=== PATIENT | male | born 1970 | race Caucasian/White ===

== ENCOUNTER 2021-06-09 11:50 | Outpatient (CLI) | payer OTHER, SELFPAY ==
--- NOTE | 2021-06-09 08:40 | FLU_PTH ---
PATIENT: RAULITO BENJAMIN LOC: [facility] U#:[id number] AGE/SX: 50/M ROOM: RE06/09/[address]: Dr. Jesús Esteves MD : 1970 BED: DIS: 06/09/2021 SPEC #: [id number] RECD: 06/09/21 11:20 STATUS: SHELLY FRANCESCA #: [id number] LUI: 06/09/21 08:[address]: Jesús Esteves DEPT: CYTOLOGY RECD BY: Katelyn Cordero ENTERED: 06/09/21 11:57 SP TYPE: Fluid OTHR DR: Dr. Anny Ibarra, DO Tissues: A - Thyroid gland, NOS B - Thyroid gland, NOS C - Thyroid gland, NOS Procedures: Special Stain Group II Surgery Specimen Level IV Cytospin Fluid Cytology Other HEADER OPERATION: Left thyroid fine needle aspiration PRE-OP DIAGNOSIS: Left thyroid nodules TISSUE SUBMITTED: A ? Left thyroid nodule fluid for cytology, B ? Left thyroid nodule x4 slides, C ? Left thyroid nodule cystic fluid aspirate DIAGNOSIS CYTOLOGY A. Left thyroid nodule fluid for cytology, FNA (cytospin and cell block): Rare benign follicular cells are noted. B. Left thyroid nodule, FNA (smears): Consistent with benign follicular nodule. Adequate for evaluation. C. Left thyroid nodule cystic fluid, FNA (cytospin and cell block): Rare macrophages are noted. See comment. SJ:julian 06/10/2021 COMMENT C. Follicular cells are not identified. Correlation with clinical, radiologic findings and appropriate follow up are necessary. CYTOLOGY STUDY Slides are reviewed. CYTOLOGY GROSS A - Received is 40 ml of red cloudy fluid labeled with the patient's name and and designated per the requisition as left thyroid nodule. Submitted for cytology preparation including cell block. B - Received are four smears labeled with the patient's name and designated per the requisition as left thyroid nodule. Submitted for staining. C - Received is 4 ml of red cloudy fluid labeled with the patient's name and and designated per the requisition as left thyroid nodule. Submitted for cytology preparation including cell block. / julian 06/09/2021 TC:5 CPT: 23744 x2, 59498 x2, 44838
== END 2021-06-09 23:59 | disposition home or self-care (01) ==
LOC: LABSPEC 11:53
PROVIDERS: PCP Internal Medicine; Visit Provider Surgery
DX: E04.2 Nontoxic multinodular goiter (principal)
CPT/HCPCS: 88108; 88161; 88305; 88313

== ENCOUNTER 2021-06-25 07:26 | Day surgery (SDC) | payer OTHER, SELFPAY ==
[2021-06-25 07:45] VITALS: BP 126/86; PULSE 63; RESP 16; TEMP 36.6; O2SAT 96; BMI 34.4
[2021-06-25] MEDS: Lactated Ringers 1,000 ML 15 ML IV (08:02)
--- NOTE | 2021-06-25 09:02 | HP.PCM_ITS ---
History and Physical Date of Admission: 06/25/21 Date of Service: 06/09/21 MR#:[id number]:[id number]: RAULITO BENJAMINRep #:[id number]:[id number] Provider:Leelee Viramontes/Sex: 50/M [facility] Int[facility] Vital Signs 06/09/21 08:42 Height 5 ft 11 in Weight: 252 lb 8 oz BMI 35.2 BP 139/82 H Blood Pressure Location Rt brachial Position Sitting Respiration 18 Pulse 70 Pulse Source Monitor Temp 97.5 F L Temp Source Temporal Pulse Oximetry (%) 96 Oxygen Delivery Method room air Intake Visit Reasons: LEFT THYROID NODULE Chief Complaint: Left Thyroid Nodule 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: No Is patient in pain?: No Allergies No Known Allergies Allergy (Verified 06/09/21 08:49) Medications amiodarone 200 mg tablet 200 mg PO DAILY 06/09/21 [History Confirmed 06/09/21] apixaban 5 mg tablet 5 mg PO BID 06/09/21 [History Confirmed 06/09/21] atorvastatin 80 mg tablet 80 mg PO DAILY 06/09/21 [History Confirmed 06/09/21] carvedilol 12.5 mg tablet 12.5 mg PO BID 06/09/21 [History Confirmed 06/09/21] hydralazine 10 mg tablet 10 mg PO DAILY tab 06/09/21 [History Confirmed 06/09/21] isosorbide dinitrate 10 mg tablet 10 mg PO DAILY tab 06/09/21 [History Confirmed 06/09/21] magnesium oxide 400 mg (241.3 mg magnesium) tablet 400 mg PO DAILY 06/09/21 [History Confirmed 06/09/21] omeprazole 20 mg capsule,delayed release 20 mg PO DAILY 06/09/21 [History Confirmed 06/09/21] potassium chloride 20 mEq oral packet 20 meq PO DAILY 06/09/21 [History Confirmed 06/09/21] torsemide 20 mg tablet 20 mg PO BID tab 06/09/21 [History Confirmed 06/09/21] [facility] Medical History (Updated 06/09/21 @ 11:[address] Jesús Esteves MD) Anxiety Atrial fibrillation Constipation Heart disease History of blood clots History of DE (myocardial infarction) Pacemaker Surgical History (Updated 06/09/21 @ 08:40 by Jennifer Tuesday) History of heart artery stent Family History (Updated 06/09/21 @ 08:41 by Jennifer Tuesday) Mother Hypertension Thyroid disorder Father Hypertension Brother Seizures Social History (Updated 06/09/21 @ 08:42 by Jennifer Tuesday) Smoking Status: Current some day smoker tobacco type: cigarettes how long ago did patient quit smoking: pt currently trying to quit, smokes occasionally, not every day substance use type: marijuana HPI HPI HPI: RAULITO BENJAMIN, is a 50 M with significant past medical history, including a number of cardiopulmonary diagnoses, who presents to the office today for newly diagnosed left thyroid nodule. They are referred for surgical consultation from Dr. Robison of [facility] in [facility]. This was discovered incidentally on a CT of the chest and abdomen performed 04/16/2021 for work-up of shortness of breath and abdominal pain. They do experience occasional difficulty with swallowing. He believes this has been present for the last 6 months to over a year. This is mostly in response to drinking liquids. They do not complain of a new cough. They do not appreciate new voice changes. They do have a history of snoring/sleep apnea and have a difficulty remaining compliant with CPAP because he does not have a full facemask. Additionally, their weight has been generally increasing and they do not have a clear explanation for this as it does not seem to be strictly related to the lower extremity swelling that he previously experienced. There is no history of recent fatigue. They do have a history of cold intolerance, but when asked for clarification he describes that he has more difficulty breathing when the temperatures are colder. Other symptoms include: Some loss of visual acuity?and finds that his ability to see at distances is retained but can no longer see up close. He also complains of recent hair loss, describing handfuls coming out over the past 3 months and needing to clean his brush once a week. Lastly he comments that he does have significant problem with constipation. He states that he is taking stool softeners up to 3 times a day but is cody to get out of marble. He denies any blood with this. There is significant straining required. Given that he has very poor voiding with individual bowel movements, he estimates that he stools approximately 3-4 times daily. He states that he was supposed to go for a colonoscopy during a past hospitalization, but then could not complete the bowel prep due to the significant volume prescribed. They do have a family history of thyroid disorders in his mother. He states that his mother had thyroid issues but no thyroid cancer as far as he is aware. There is no history of prior radiation exposure. Previous work-up as included thyroid ultrasound on 04/22/2021 which showed a right thyroid lobe that measured 5.4 x 2.0 x 1.2 cm. There is a heterogeneous echotexture but no nodules. On the left the thyroid measured 6.8 x 4.0 x 4.2 cm. There was, again, heterogeneous echotexture and a 5.1 x 3.4 x 3.7 cm solid/cystic nodule. An FNA has not been performed. Other tests include: TSH 1.475 (12/10/2020) Elaborating on the patient's personal/familial bowel history; patient does have a history of diverticulitis as well that was first diagnosed in his 20s. He is unaware of any diagnoses of colon cancer in the family, but relates that his brother was just diagnosed with Crohn's a month ago. Patient is currently on Eliquis for history of rate controlled atrial fibrillation. Cardioversion was unsuccessful and an ICD was subsequently placed. He also has a history of an DE 1 and half years ago. When asked about his pulmonary embolus, he states that he was transitioning between Coumadin and Eliquis and developed a clot that never reached the lungs but was on his way. He states that he was never able to achieve a therapeutic Coumadin level and this is what prompted the switch to Eliquis. He has held the Eliquis for just over 48 hours in anticipation of procedure today. He continues to take a baby aspirin of 81 mg. ROS General General: Yes weight change; No appetite, fatigue, colon cancer, breast cancer or weakness HEENT HEENT: No difficulty swallowing, eye injury, eye surgery, swollen glands or hoarseness Endo Endocrine: No thyroid disease, diabetes mellitus, thyroid cancer, Hair loss, heat intolerance or cold intolerance Skin Skin: No rash or changing moles Musc Musculoskeletal: No back problems, arthritis, rheumatoid arthritis, gout or joint pain Cardio Cardiovascular: Yes pacemaker, heart disease, atrial fibrillation, heart attack and heart stent; No murmur, high blood pressure, palpitations, shortness of breat with exertion or chest pain Psych Psychiatric: Yes anxiety; No depression or hearing voices Resp Respiratory: Yes shortness of breath, Yes sleep apnea, No cough, No COPD, No asthma, No emphysema and No wheezing Gastro Gastrointestinal: No abdominal pain, No nausea or vomiting, No diarrhea, Yes constipation, No blood in stool, No acid reflux, No hemorrhoids, No ulcers, No gallbladder problem and No black,tarry stools Calvin Hematologic: Yes blood thinners, No blood disorders, No bleeding, No anemia and Yes blood clots Additional Details: Hx DVT and possibly PE Neuro Neurologic: No system reviewed and no additional complaints, except as documented, No as per HPI, No abnormal gait, No abnormal hearing, No abnormal movements, No abnormal speech, No behavioral changes, No burning sensations, No confusion, No convulsions, No disequilibrium, No dizziness, No localized weakness, No frequent falls, No headache(s), No lack of coordination, No loss of vision, No memory loss, No numbness, No other visual disturbances, No radicular pain, No restless legs, No sensory deficit, No syncope, No tingling, No tremor(s), No weakness and No other Exam Const General: cooperative, no acute distress and disheveled Orientation: alert, awake and oriented x3 Neck Neck: no lymphadenopathy Thyroid: asymmetrical (Enlarged left thyroid lobe) and tender (Mildly tender with palpation) Resp Effort & Inspection: normal respiratory effort Auscultation: clear to auscultation bilaterally, no rales, no rhonchi and no wheezes Cardio Rhythm: abnormal rhythm irregularly irregular Office Procedures Fine Needle Aspiration Provider Documentation Details: Indication: Left thyroid nodule After obtaining patient consent and conducting a timeout amongst those present, the procedure was commenced by locating the suspicious nodule in the mid pole of the left thyroid lobe using ultrasound. Superficially, the skin was cleaned with an alcohol swab and a wheal of local anesthetic was created after instilling 9 ml 1% lidocaine. Then, under ultrasound guidance, multiple passes were made into the thyroid nodule using a 25-gauge needle. Once an adequate specimen was detected within the hub of the needle and bottom of the syringe, this was handed off the field. A second pass was made in a similar manner using a 22-gauge needle. This specimen, also, was passed off the field for cytopathologic evaluation. Given the very large cystic component of this nodule, I elected to perform a third pass for cystic fluid aspiration with a 22- gauge needle. This resulted in a total volume aspiration of 8 mL of clear, orange fluid. External pressure was applied to the neck to assist with hemostasis. A quick examination was made with ultrasound to exclude any evidence of hematoma formation. Then the surface of the neck was cleaned, dried, and a bandage was applied. Patient was gradually returned to the sitting position and after short period of monitoring was dismissed. Wound care instructions and expectations regarding pathologic processing were discussed prior to dismissal. Complications: None Estimated blood loss: 2 ml Alert Machine Sign Writer Alert Billing: Yes FNA 21743 Thyroid Procedure Time Out Time Out Informed consent given: Yes Consent signed: Yes Time out checklist: patient, procedure, site marked/identified, positioning of patient, supplies available, allergies confirmed and team agrees on procedure Time out staff in room: Yes Time out verified: Yes Time out date: 06/09/21 Time out time: 08:40 Assessment and Plan Assessment and Plan (1) Thyroid nodule greater than or equal to 1.5 cm in diameter incidentally noted on imaging study: Status: Acute Comment: This is a 50-year-old male with a incidentally?noted left thyroid nodule on CT exam from April 2021 for work-up of shortness of breath abdominal pain. Patient has a number of complaints, but it is unlikely these are due to an endocrine deficiency as patient had a normal TSH level in November 2020. From a mass-effect standpoint, patient experiences only occasional difficulty swallowing and his shortness of breath/pulmonary issues are generally ascribed to his significant cardiopulmonary history. Still, by imaging criteria this nodule is a TI-RADS 5 secondary to a mixed composition, hypoechoic echogenicity, in irregular margin, and the presence of peripheral calcifications. Therefore a biopsy and aspiration of the cystic contents was undertaken under ultrasound guidance during today's consultation. Further treatment plan will be contingent on the results of the patient's cytopathology. Patient is advised on post-? procedure care. Plan - Dr. Jesús Esteves MD: We will follow-up with patient once the results of cytopathology are known (2) Constipation: Status: Acute Comment: This is a 50-year-old male with some mild anemia and significant complaints of constipation who is never undergone diagnostic colonoscopy. He states that he has difficulty having bowel movements despite efforts to take supplemental fiber and use [id number] stool softeners. Also, significantly, patient has a prior diagnosis of diverticulitis and was recently made aware that his brother was diagnosed with Crohn's disease. Given all of the above, a diagnostic colonoscopy is strongly recommended. Patient accepts this recommendation and we will plan to proceed for an exam at first mutual availability. Plan - Dr. Jesús Esteves MD: ?Plan will be to complete colonoscopy on first mutually agreeable date under local MAC. Pre-procedure prep discussed and paper instructions provided. 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 We also covered that he will require temporary stoppage of his Eliquis prior to this procedure as well. I have re-examined the patient. There are no clinical changes since date of exam. Patient states that he completed his bowel prep successfully. He confirms that his output is now clear plan to proceed with diagnostic colonoscopy under local MAC.
[2021-06-25 09:53] VITALS: PULSE 89; RESP 16; TEMP 36.2; O2SAT 99
[2021-06-25 09:55] VITALS: BP 107/81; PULSE 89; RESP 16; O2SAT 98
--- NOTE | 2021-06-25 09:57 | OP.COLON_ITS ---
Patient Name: Kraig Anthony Procedure Date: 06/25/2021 9:08 AM Date of : 1970 Age: 50 Procedure: Colonoscopy Indications: Family history of Crohn's disease in a first-degree relative, Diverticulitis, Constipation Providers: Jeúss Esteves MD Referring MD: Jesús Esteves MD Medicines: See the Anesthesia note for documentation of the administered medications Patient Profile: Refer to note in patient chart for documentation of history and physical. Last Colonoscopy: none. The patient's first colonoscopy is today. Complications: No immediate complications. Estimated blood loss: None. Procedure: Pre-Anesthesia Assessment: - The heart rate, respiratory rate, oxygen saturations, blood pressure, adequacy of pulmonary ventilation, and response to care were monitored throughout the procedure. After I obtained informed consent, the scope was passed under direct vision. Throughout the procedure, the patient's blood pressure, pulse, and oxygen saturations were monitored continuously. The colonoscope was introduced through the anus and advanced to the cecum, identified by appendiceal orifice and ileocecal valve. The entire colon was examined. The colonoscopy was performed without difficulty. The quality of the bowel preparation was good. The patient tolerated the procedure well. Scope In: 9:24:14 AM Scope Withdrawal Time 0 hours 14 minutes 59 seconds Scope Out: 9:46:33 AM Total Procedure Duration Time 0 hours 22 minutes 19 seconds Findings: Internal hemorrhoids were found during retroflexion. The hemorrhoids were Grade II (internal hemorrhoids that prolapse but reduce spontaneously). No biopsies or other specimens were collected for this exam. Multiple medium-mouthed diverticula were found in the sigmoid colon and from 30 to 50 cm proximal to the anus. No biopsies or other specimens were collected for this exam. Impression: - Internal hemorrhoids. No specimens collected. - Diverticulosis in the sigmoid colon and from 30 to 50 cm proximal to the anus. No specimens collected. Recommendation: - Discharge patient to home (via wheelchair). - High fiber diet today. - Continue present medications. - Repeat colonoscopy in 5 years for screening purposes. - Telephone my office for study results in 1 week. Procedure Code(s): --- Professional --- 62593, Colonoscopy, flexible; diagnostic, including collection of specimen(s) by brushing or washing, when performed (separate procedure) Diagnosis Code(s): --- Professional --- K64.1, Second degree hemorrhoids Z83.79, Family history of other diseases of the digestive system K57.32, Diverticulitis of large intestine without perforation or abscess without bleeding K59.00, Constipation, unspecified K57.30, Diverticulosis of large intestine without perforation or abscess without bleeding CPT copyright 2017 [employer]. All rights reserved. The codes documented in this report are preliminary and upon auditing coder review may be revised to meet current compliance requirements. Jesús Esteves MD 06/25/2021 9:57:00 AM This report has been signed electronically. Number of Addenda: 0 Note Initiated On: 06/25/2021 9:08 AM
--- NOTE | 2021-06-25 09:58 | OP.CCLET_ITS ---
06/25/2021 Anny Ibarra Do Re : Colonoscopy procedure for Kraig Anthony Dear Stacey This procedure was performed on June. My impressions and recommendations are as follows: Impressions : - Internal hemorrhoids. No specimens collected. - Diverticulosis in the sigmoid colon and from 30 to 50 cm proximal to the anus. No specimens collected. Recommendations : - Discharge patient to home (via wheelchair). - High fiber diet today. - Continue present medications. - Repeat colonoscopy in 5 years for screening purposes. - Telephone my office for study results in 1 week. My findings are described in the full procedure note, which is enclosed. If I can be of further assistance, please feel free to contact me at Doctor phone number(s): , Work: . Sincerely, Jesús Esteves MD 06/25/2021 9:57:00 AM This report has been signed electronically.
[2021-06-25 10:00] VITALS: BP 109/74; PULSE 84; RESP 16; O2SAT 98
[2021-06-25 10:06] VITALS: BP 111/95; BP 116/84; PULSE 87; PULSE 89; RESP 16; TEMP 36.2; O2SAT 98
== END 2021-06-25 23:59 | disposition home or self-care (01) ==
LOC: EN 07:26 → AC 07:29
PROVIDERS: PCP Internal Medicine; Referring Provider Surgery; Visit Provider Surgery
PROC: 0DJD8ZZ Inspection of Lower Intestinal Tract, Via Natural or Artificial Opening Endoscopic (ICD-10-PCS; CPT 45378; principal; 2021-06-25 08:25)
DX: K64.1 Second degree hemorrhoids (principal); I48.91 Unspecified atrial fibrillation; K57.32 Diverticulitis of large intestine without perforation or abscess without bleeding; K59.00 Constipation, unspecified; I25.2 Old myocardial infarction; E04.1 Nontoxic single thyroid nodule; F17.210 Nicotine dependence, cigarettes, uncomplicated; Z95.0 Presence of cardiac pacemaker; Z79.01 Long term (current) use of anticoagulants; Z79.899 Other long term (current) drug therapy; Z20.822 Contact with and (suspected) exposure to COVID-19; Z83.79 Family history of other diseases of the digestive system
CPT/HCPCS: 45378; 87426; J7120

== ENCOUNTER → 2022-06-01 | Outpatient (CLI) | payer MEDICARE, SELFPAY ==
--- NOTE | 2022-06-01 11:55 | US_ITS ---
STUDY: THYROID ULTRASOUND REASON FOR EXAM: Male, 51 years old. Left thyroid nodule. TECHNIQUE: Ultrasound evaluation of the thyroid was performed with real-time and static irving-scale imaging. COMPARISON: None. FINDINGS: RIGHT LOBE: The right lobe of the thyroid gland is enlarged and measures 5.3 cm x 1.5 cm x 1.9 cm. There is a homogeneous echotexture. There are no demonstrated solid, cystic or complex lesions. LEFT LOBE: The left lobe of the thyroid gland is enlarged and measures 6.5 cm x 5.3 cm x 3.9 cm. There is a heterogeneous echotexture. There is a complex solid and cystic mass in the mid lobe of the thyroid measuring 5.6 cm x 4.8 cm x 3.2 cm. Biopsy recommended. ISTHMUS: The isthmus is enlarged and measures 7 mm. The regional lymph nodes are normal. US/Thyroid IMPRESSION: Thyromegaly. 5.6 x 4.8 cm x 3.2 cm complex solid and cystic mass in the midportion of the left lobe of the thyroid. Biopsy recommended. Electronically Signed: Timmy Bocanegra MD at 15:47 EST ,
== END | disposition home or self-care (01) ==
PROVIDERS: PCP Internal Medicine; Referring Provider Surgery; Visit Provider Surgery
DX: E04.1 Nontoxic single thyroid nodule (principal)
CPT/HCPCS: 76536

== ENCOUNTER → 2022-06-08 | Outpatient (CLI) | payer MEDICARE, SELFPAY ==
[2022-06-08 11:09] LABS: Free T3 3.3 pg/mL (2.18-3.98); T4 Total, Thyroxin 10.3 ug/dL (4.5-12.1); Thyroid Stim Hormone (TSH) 1.61 uIU/mL (0.358-3.74)
== END | disposition home or self-care (01) ==
LOC: PAVLAB 10:15
PROVIDERS: PCP Internal Medicine; Referring Provider Surgery; Visit Provider Surgery
DX: E04.1 Nontoxic single thyroid nodule (principal)
CPT/HCPCS: 36415; 84436; 84443; 84481

== ENCOUNTER 2022-08-04 12:24 | Observation (INO) | payer MEDICARE, SELFPAY ==
[2022-08-02 11:55] LABS: Hematocrit 38.9 % (40-54); Hemoglobin 12.8 g/dL (13.0-16.5); Mean Corp Hgb Conc 32.9 g/dL (32-36); Mean Corpuscular Hgb 28.8 pg (27.0-32.0); Mean Corpuscular Volume 87.4 fL (80-94); Mean Platelet Vol. 10.4 fl (6.2-12.0); Platelet Count 276 K/mm3 (150-450); RBC Distribution Width CV 16.8 % (11.6-14.6); RBC Distribution Width SD 53.1 fl (35.1-43.9); Red Blood Count 4.45 M/mm3 (4.6-6.2); White Blood Count 10.2 K/mm3 (4.4-11.0)
[2022-08-02 12:22] LABS: Anion Gap 8 (5-15); BUN 34 mg/dL (7-18); BUN/Creat Ratio 19.1 RATIO (10-20); Calcium,Total 9.2 mg/dL (8.5-10.1); Chloride 93 mmol/L (98-107); Creatinine, Serum 1.78 mg/dL (0.70-1.30); EST Glomerular Filtration Rate 43 mL/min (>60); Est Glom Filt Rate - Afr Amer 52 mL/min (>60); Glucose 116 mg/dL (74-106); Potassium 3.1 mmol/L (3.5-5.1); Sodium Level 133 mmol/L (136-145)
[2022-08-04] VITALS (15 sets, daily range): BP systolic 92–124; BP diastolic 56–96; PULSE 90–123; RESP 16–20; TEMP 36.3–36.8; O2SAT 92–98; BMI 36.6
--- NOTE | 2022-08-04 | THYROID_PTH ---
PATIENT: RAULITO BENJAMIN LOC: [facility] U#:[id number] AGE/SX: 51/M ROOM: NV314 RE08/04/[address]: Dr. Jesús Esteves MD : 1970 BED: 1 DIS: 08/05/2022 SPEC #: [id number] RECD: 08/04/22 12:36 STATUS: SHELLY MA #: [id number] LUI: 08/04/22 00:[address]: Jesús Esteves DEPT: SURGICAL PATHOLOGY RECD BY: Sam Jerome ENTERED: 08/04/22 12:36 SP TYPE: THYROID OTHR DR: Dr. Anny Ibarra, DO Tissues: Thyroid gland, NOS Procedures: Surgery Specimen Level V HEADER OPERATION: Left thyroid lobectomy and isthmusectomy PRE-OP DIAGNOSIS: Thyroid nodule TISSUE SUBMITTED: Left thyroid lobe and isthmus (stitch meade left superior pole) MICROSCOPIC DIAGNOSIS Left thyroid lobe and isthmus, lobectomy and isthmusectomy: Nodular goiter with extensive dystrophic calcifications. See comment. SJ:rg 08/09/2022 COMMENT Please make reference to previous specimen ([id number]) left thyroid nodule, FNA with diagnosis of ?consistent with benign follicular nodule.? Case has been reviewed in consultation with Dr. Bello who concurs with the above diagnosis. IDC:AM MICROSCOPIC DESCRIPTION Slides are reviewed. GROSS DESCRIPTION Received in fixative is one container labeled with the patient's name and designated left thyroid lobe and isthmus. The specimen consists of a lobe of thyroid and isthmus. The lobe measures 6.0 x 5.0 x 3.2 cm. The isthmus measures 4.5 x 2.0 x 1.2 cm. The specimen weighs 52 gm and is differentially inked as?follows: left lobe, anterior surface - blue, isthmus, anterior surface - red and entire posterior surface - black. Serial of the isthmus reveal mostly reddish-white cut surfaces. No distinct mass lesion is identified. Serial sections of the left lobe reveal a nodule occupying most the lobe measuring 4.0 cm in greatest dimension and reveal gelatinous cut surface with multiple foci of softening cyst formation and dystrophic calcifications. Sections reveal. Nursing Staffing Coordinator sections are submitted in ten cassettes as follows: 1 & 2 - isthmus, 3-10 - thyroid lobe after decalcification. / AM:julian 08/05/2022 TC:5 CPT: 99728, 06606
[2022-08-04] MEDS: Lactated Ringers 1,000 ML 15 ML IV (07:01)
--- NOTE | 2022-08-04 07:23 | HP.PCM_ITS ---
History and Physical Date of Admission: 08/04/22 Date of Service:? 06/08/22 MR#: [id number] Acct: [id number] Name:RAULITO BYRD Rep #: [id number] : 1970 ? ? Provider: Dr. Jesús Esteves MD Age/Sex:? 51/M ? ? Location: [facility] Status: Signed Intake Vital Signs ? 06/25/2206:45 06/02/2310:21 06/08/2308:21 Height 5 ft 11 in 5 ft 11 in 5 ft 11 in Weight: ? ? 270 lb BMI ? ? 37.6 BP ? ? 132/87 H Blood Pressure Location ? ? Rt brachial Position ? ? Sitting Respiration ? ? 16 Pulse ? ? 102 H Pulse Source ? ? Monitor Temp ? ? 97 F L Temp Source ? ? Temporal Pulse Oximetry (%) ? ? 96 Oxygen Delivery Method ? ? room air Intake Visit Reasons:?Thyroid f/u ultrasound Chief Complaint: F/U Thyroid Ultrasound [employer] Required: No Is patient in pain?: No Allergies No Known Allergies Allergy (Verified 06/08/22 09:22) Medications amiodarone 200 mg tablet 200 mg PO DAILY 06/09/21 [History Confirmed 06/08/22] apixaban 5 mg tablet (Eliquis) 5 mg PO BID 06/09/21 [History Confirmed 06/08/22] atorvastatin 80 mg tablet 80 mg PO QHS 06/09/21 [History Confirmed 06/08/22] carvedilol 12.5 mg tablet 12.5 mg PO BID 06/09/21 [History Confirmed 06/08/22] hydralazine 10 mg tablet 10 mg PO DAILY 06/09/21 [History Confirmed 06/08/22] isosorbide dinitrate 10 mg tablet 10 mg PO DAILY 06/09/21 [History Confirmed 06/08/22] magnesium oxide 400 mg (241.3 mg magnesium) tablet 400 mg PO DAILY 06/09/21 [History Confirmed 06/08/22] omeprazole 20 mg capsule,delayed release 20 mg PO DAILY 06/09/21 [History Confirmed 06/08/22] potassium chloride 20 mEq oral packet 20 meq PO DAILY 06/09/21 [History Confirmed 06/08/22] torsemide 20 mg tablet 20 mg PO BID 06/09/21 [History Confirmed 06/08/22] PFSH Medical History? Alcohol use Anxiety Anxiety Atrial fibrillation Cardiology follow-up encounter Constipation COPD (chronic obstructive pulmonary disease) CPAP (continuous positive airway pressure) dependence Dietary restriction Gastric reflux Heart disease History of blood clots History of diverticulitis History of edema History of LA (myocardial infarction) History of renal disease History of stress test Marijuana use Pacemaker Shortness of breath on exertion Smoker Thyroid disease Surgical History? History of cardiac catheterization History of heart artery stent Family History? Mother Hypertension Thyroid disorderFather HypertensionBrother Seizures Social History? Smoking Status:? Current some day smoker tobacco type: cigarettes how long ago did patient quit smoking:? pt currently trying to quit, smokes occasionally, not every day substance use type:? marijuana HPI HPI HPI: Patient presents for surveillance of thyroid nodules.? He is known to me for a consultation regarding a left thyroid nodule referred from Dr. Swanson.? His last visit was June 09, 2021.? Mr. Anthony initially declares that he has not really had a change in symptoms since our last visit, however, when I reviewed with him his last reported frequency of dysphagia (a couple times per month) he reports that it is now more frequent.? He describes this as a lumpy feeling when swallowing.? He states that his shortness of breath is mostly stable.? He r eports use of torsemide for this issue.? Unhappily also reports some weight gain but she declares is not just water.? He states this is despite eating less and keeping his activity level the same.? He notes that he has had to cancel a couple of cardiology visits on account of bad weather, but is due to make a make up visit tomorrow in [place]. Below is recapitulated from patient's initial consultation visit for ease of review: HPI: RAULITO ANTHONY, is a 50 M with significant past medical history, including a number of cardiopulmonary diagnoses, who presents to the office today for newly diagnosed left thyroid nodule.? They are referred for surgical consultation from Dr. Robison of [facility] in [facility].? This was discovered incidentally on a CT of the chest and abdomen performed 04/16/2021 for work-up of shortness of breath and abdominal pain. They do experience occasional difficulty with swallowing.? He believes this has been present for the last 6 months to over a year.? This is mostly in response to drinking liquids.? They do not complain of a new cough.? They do not appreciate new voice changes.? They do have a history of snoring/sleep apnea and have a difficulty remaining compliant with CPAP because he does not have a full facemask. Additionally, their weight has been generally increasing and they do not have a clear explanation for this as it does not seem to be strictly related to the lower extremity swelling that he previously experienced.? There is no history of recent fatigue.? They do have a history of cold intolerance, but when asked for clarification he describes that he has more difficulty breathing when the temperatures are colder.? ? Other symptoms include: Some loss of visual acuity?and finds that his ability to see at distances is retained but can no longer see up close.? He also complains of recent hair loss, describing handfuls coming out over the past 3 months and needing to clean his brush once a week. ? Lastly he comments that he does have significant problem with constipation.? He states that he is taking stool softeners up to 3 times a day but is cody to get out of marble.? He denies any blood with this.? There is significant straining required.? Given that he has very poor voiding with individual bowel movements, he estimates that he stools approximately 3-4 times daily.? He states that he was supposed to go for a colonoscopy during a past hospitalization, but then could not complete the bowel prep due to the significant volume prescribed.? They do have a family history of thyroid disorders in his mother.? He states that his mother had thyroid issues but no thyroid cancer as far as he is aware.? There is no history of prior radiation exposure. Previous work-up as included thyroid ultrasound on 04/22/2021 which showed a right thyroid lobe that measured 5.4 x 2.0 x 1.2 cm.? There is a heterogeneous echotexture but no nodules.? On the left the thyroid measured 6.8 x 4.0 x 4.2 cm.? There was, again, heterogeneous echotexture and a 5.1 x 3.4 x 3.7 cm solid/cystic nodule.? An FNA has not been performed.? Other tests include: TSH 1.475 (12/10/2020) Elaborating on the patient's personal/familial bowel history; patient does have a history of diverticulitis as well that was first diagnosed in his 20s.? He is unaware of any diagnoses of colon cancer in the family, but relates that his brother was just diagnosed with Crohn's a month ago. Patient is currently on Eliquis for history of rate controlled atrial fibrillation.? Cardioversion was unsuccessful and an ICD was subsequently placed.? He also has a history of an LA 1 and half years ago.? When asked about his pulmonary embolus, he states that he was transitioning between Coumadin and Eliquis and developed a clot that never reached the lungs but was on his way.? He states that he was never able to achieve a therapeutic Coumadin level and this is what prompted the switch to Eliquis.? He has held the Eliquis for just over 48 hours in anticipation of procedure today.? He continues to take a baby aspirin of 81 mg. ROS General General: Yes weight change; No appetite, fatigue, colon cancer, breast cancer or weakness HEENT HEENT: No difficulty swallowing, eye injury, eye surgery, swollen glands or hoarseness Endo Endocrine: No thyroid disease, diabetes mellitus, thyroid cancer, Hair loss, heat intolerance or cold intolerance Skin Skin: No rash or changing moles Musc Musculoskeletal: No back problems, arthritis, rheumatoid arthritis, gout or joint pain Cardio Cardiovascular: Yes pacemaker, heart disease, atrial fibrillation, heart attack and heart stent; No murmur, high blood pressure, palpitations, shortness of breat with exertion or chest pain Psych Psychiatric: Yes anxiety; No depression or hearing voices Resp Respiratory: Yes shortness of breath, Yes sleep apnea, No cough, No COPD, No asthma, No emphysema and No wheezing Gastro Gastrointestinal: No abdominal pain, No nausea or vomiting, No diarrhea, Yes constipation, No blood in stool, No acid reflux, No hemorrhoids, No ulcers, No gallbladder problem and No black,tarry stools Calvin Hematologic: Yes blood thinners, No blood disorders, No bleeding, No anemia and Yes blood clots Additional Details: Hx DVT and possibly PE Neuro Neurologic: No system reviewed and no additional complaints, except as documented, No as per HPI, No abnormal gait, No abnormal hearing, No abnormal movements, No abnormal speech, No behavioral changes, No burning sensations, No confusion, No convulsions, No disequilibrium, No dizziness, No localized weakness, No frequent falls, No headache(s), No lack of coordination, No loss of vision, No memory loss, No numbness, No other visual disturbances, No radicular pain, No restless legs, No sensory deficit, No syncope, No tingling, No tremor(s), No weakness and No other Exam Const General: cooperative and not in acute distress Orientation: alert, awake and oriented x3 Neck Other: Patient with positive Florin sign.? Patient with very large left inferior pole thyroid nodule that is predominantly cystic with an over lying calcification rim.? For me this nodule measures 3.3 x 2.5 x 5.5 cm.? It is difficult to obtain measurements given that the nodule margin cannot be included in 1 view from our probe.? Overall length of the left thyroid lobe measures at 6.3 cm and it does not appear that the inferior pole extends beneath the patient's left clavicle. Resp Effort & Inspection: normal respiratory effort and able to speak in complete sentences Assessment and Plan Assessment and Plan (1) Thyroid nodule greater than or equal to 1.5 cm in diameter incidentally noted on imaging study: ?Status:?Acute ?Comment: This is a 50-year-old male with a incidentally?noted left thyroid nodule on CT exam from April 2021 for work-up of shortness of breath.? This was rated a TI-RADS 5 by sonographic characteristics and underwent FNA biopsy last year with cytopathology resulting as a [place] 2 lesion.? The cystic fluid was aspirated and resulted in immediate reduction in the nodule size, however, given the suspicious appearance and large size I recommended ongoing surveillance of this issue.? Patient presents today with recorded dimensions by radiology that suggest a 34% increase in the nodules volume.? Further, patient reports more frequent swallowing difficulty.? Although he reports difficulty with losing weight, his thyroid functions were again checked today and he is euthyroid from an endocrine standpoint.? Based on the reported increase in nodule size and patient's increased frequency of symptoms, I am recommending we proceed with left thyroid lobectomy using intraoperative nerve monitoring.? I carefully articulated the risks of thyroid surgery to include most notably hypoparathyroidism and recurrent laryngeal nerve function.? And drawings were made to illustrate these points.? I also added that we would require clearance from patient's retread technician and primary care provider (given his pulmonary status) prior to proceeding with surgery.? Patient is asked to introduce this topic during tomorrow's planned cardiology visit.? We will wait this evaluation.? Patient will need, specifically, cleared for holding of his anticoagulation and I am requesting 2 days prior and 2 days following surgery. ?Plan: ? Tentatively plan for left thyroid lobectomy (to be planned for as an outpatient procedure) using intraoperative nerve monitoring.? Date to be set ? Obtain preoperative cardiac and pulmonary clearance for the above I have examined the patient and the H&P has been reviewed. There are no clinical changes since date of exam. Patient confirms that he has held his Eliquis appropriately for today's procedure. Neither he nor his significant other that are present in the room have any further questions. Therefore we will proceed to the operating room for planned left thyroid lobectomy with intraoperative nerve monitoring.
[2022-08-04] MEDS: Bupivacaine 0.25% 30 ML Vial (08:09)
--- NOTE | 2022-08-04 10:38 | PCM.OPRPT ---
Report of Operation Date of Procedure: 08/04/22 Pre-Operative Diagnosis: Multinodular goiter with compressive symptomology and dominant left thyroid nodule Post-Operative Diagnosis: Same Surgery/Procedure Performed:: Left thyroid lobectomy and isthmusectomy using intraoperative nerve monitoring Surgeon: Jesús Esteves senior clinical research associate: Alf Lowe senior clinical research associate: Penny Kapadia Type of Anesthesia: General/Supplemental Anesthesiologist: Kirill Latham Description of Procedure: After appropriate identification in the preoperative holding area, the patient was brought to the operating room where he was positioned supine on the operating room table. Induction of general endotracheal anesthetic was begun and a NIMS tube was placed under glidescope view to confirm coaptation with the vocal cords anteriorly. Tube was then secured and the patient was positioned with a shoulder roll so that his head was in extension but supported. The Nims electrodes were placed and connected to the monitor. We had appropriate resistance showing on the monitor and tapping at the level of the cricoid produced a graphical representation of the impulse on the monitor. Patient's neck was then prepped and draped in usual sterile fashion and a formal timeout was conducted from those present. The lowest skin fold to the sternal notch was selected for incision site (this resided approximately 2 and half fingerbreadths cephalad to the notch). An incision was extended for 3 cm on either side of midline initially, but required further extension by approximately 1 cm to the left, later in the procedure. Electrocautery was used to deepen this incision through the level of the platysma. Subplatysmal flaps were raised with the use of electrocautery and blunt dissection. The strap muscles were then divided along the medial raphe bringing us down to the level of the thyroid. Capsular attachments to the thyroid were divided with the use of LigaSure or bluntly swept away with blunt dissection. Retractors were placed for visualization of the superior pole of the thyroid. The vessels of the superior pole were sequentially ligated with the use of the LigaSure device. As we moved towards the thyroid gland away from the pole vessels, we identified the superior parathyroid gland and preserved its vascular pedicle. We then moved to 2 large caliber middle thyroid veins which were isolated atop the anterior capsule of the thyroid and divided with the use of LigaSure. I then used blunt dissection by sweeping my fingers under the inferior lateral border of the left lobe to free muscular attachments to the gland. Visualization of the inferior pole vessels was limited as this was partially obscured by patient's left clavicle. I was able to visualize several of these vessels medially and sequentially ligated them with the use of LigaSure as had been done on the superior pole. Once the inferior pole was completely freed, I attempted to deliver the gland out of the neck incision, but several remaining superior attachments prevented this maneuver so these were taken directly against the thyroid capsule with the use of LigaSure. I bluntly the remaining strap muscle fibers from the thyroid capsule and using blunt dissection parallel to the presumed course of the recurrent laryngeal nerve and exposed the tracheoesophageal groove. I did not encounter any candidate structures for the recurrent laryngeal nerve, but tested several structures in the region of the ligament of [place] with our Nims monitor before dividing them with LigaSure. More proximal to the cricothyroid membrane, I used suture ligature to secure minuscule remnants of the thyroid adjacent to the thyroid cartilage. Ultimately I was able to deliver the left lobe anterior enough onto the thyroid cartilage that I was sure that our nerve insertion was now posterior and the remaining thyroid tissue was removed from the anterior surface of the trachea with electrocautery to include the entirety of the thyroid isthmus. Superiorly I did identify what appeared to be a cephalad extension of a small pyramidal lobe so I dissected this free of the anterior surface of the thyroid cartilage and divided the tissue with LigaSure. The specimen was divided at the junction of the isthmus and the right lobe (leaving the latter undisturbed) with the LigaSure device for hemostasis. The specimen was oriented with a stitch placed through the left superior pole and passed off the field for permanent section. Pressure was applied to the surgical cavity and there was some slight oozing along the anterior surface of the trachea well away from the recurrent laryngeal nerve where selective electrocautery was applied. Closer to the nerve there was some additional oozing and Surgicel hemostatic agent was placed while pressure was applied. Once this pressure was relieved, the surgical cavity was again inspected and we found hemostasis to be intact. Satisfied with this result, the strap muscles were closed with a running 3-0 Vicryl stitch leaving a small gap at the inferior aspect of the suture line. The platysmal flaps were closed with interrupted 3-0 Vicryl. Some additional local anesthetic was infiltrated throughout the dermis and the skin was closed in a subcuticular fashion using 4-0 Monocryl. Steri-Strips were applied. Telfa and Tegaderm were used as a dressing. The patient was then awakened from anesthetic without event and was taken to PACU for ongoing recovery. Grafts/Implants Used: N/A Complications None
--- NOTE | 2022-08-04 10:40 | DCINST_ITS ---
Discharge Instructions Diet Discharge Diet: No restrictions (However recommend a liquid to soft diet initially postoperatively) Activity Discharge Activity: May Not Drive (While it remains difficult to check blind spots quickly) May shower in (days): 2 Ice area for (Minutes): 20 Lifting Restrictions: No lifting greater than 15 pounds for 2 weeks after surgery Additional Activity Instructions:: Be sure to elevate head of bed for first week postop Dressing / Incision Call your doctor if your incision/area has: Continuous Slow Oozing, Sudden Increased Bleeding, Increased Pain/ Swelling, Increased Redness and Swelling at the incision site Call your doctor if you observe: Numbness or Tingling Remove Dressing in: 2 days (Please leave Steri-Strips intact until they fall off spontaneously or are taken off at your follow-up visit) Cleanse incision/area with: Soap & Water Follow Up Care Please Follow Up With: Jesús Esteves MD When: 7 days postop Test Results: Test results from this visit will be discussed in further detail at your follow- up appointment, if applicable. Discharge Plan Admission Admit Date/Time: 08/04/22 12:24 Primary Reason for Your Visit: Thyroid lobectomy Attending Provider: Jesús Esteves Primary Care Provider: Anny Ibarra Instructions Patient Instructions: Thyroidectomy Post Op, After Thyroid Surgery Additional Instructions / Restrictions: Plan to restart Eliquis 48 hours postop as long as there is no concern for progressive neck swelling You may shower in 2 days The day of your follow-up in 1 week, please proceed to the lab prior to your appointment to obtain a calcium and parathyroid blood draw Discharge Orders/Prescriptions Prescriptions: Continued atorvastatin 80 mg tablet 80 mg PO QHS hydralazine 10 mg tablet 10 mg PO DAILY torsemide 20 mg tablet 60 mg PO 0800 carvedilol 12.5 mg tablet 12.5 mg PO BID Rx Instructions: must administer with a meal/food magnesium oxide 400 mg (241.3 mg magnesium) tablet 400 mg PO DAILY isosorbide dinitrate 10 mg tablet 10 mg PO DAILY Rx Instructions: allow nitrate-free interval of 12-14 hrs per 24-hr period amiodarone 200 mg tablet 200 mg PO DAILY potassium chloride 20 mEq packet 40 meq PO BID torsemide 20 mg tablet 40 mg PO 1999 Label Comments: TAKE 2 TABLETS BY MOUTH TWICE DAILY aspirin 81 mg Capsule 81 mg PO DAILY Held Eliquis 5 mg tablet 5 mg PO BID Hold Instructions: Resume on 08/07/22. Other Ambulatory Orders: PTHIN (Routine) Timeframe: 1 Week Facility: [facility] - Location: Laboratory Ordered By: Kylah WELLS Calcium,Total (Routine) Timeframe: 1 Week Facility: [facility] - Location: Laboratory Ordered By: Kylah WELLS Referrals / Follow Up: Jesús Esteves MD [Med Staff - Active Staff] - (Please call our office to schedule a 1 week follow-up appointment) Anny Ibarra DO [Primary Care Provider] - (Patient requires follow-up of creatinine after observation of TRISTIN postoperative day 1.) Disposition Disposition (needs filled in before D/C Order can be placed): Home, Self Care
[2022-08-04] MEDS: Ibuprofen 400 MG Tablet PO ×2 (15:40→23:54)
[2022-08-04] MEDS: Acetaminophen 500 MG Tablet PO (20:21)
[2022-08-04] MEDS: Potassium Chloride Oral Tablet 20 MEQ 40 MEQ PO (20:22)
[2022-08-04] MEDS: 0.9% Normal Saline 1,000 ML 75 ML IV (20:22)
[2022-08-04] MEDS: Carvedilol 12.5 MG Tablet PO (20:25)
[2022-08-04] MEDS: Torsemide 20 MG Tablet 40 MG PO (20:27)
[2022-08-04] MEDS: Atorvastatin Calcium 80 MG Tablet PO (20:27)
--- NOTE | 2022-08-04 20:52 | NURSING ---
pt stood at the side of the bed. Pt tolerated it well. refused chair at this time
[2022-08-05] MEDS: Ibuprofen 400 MG Tablet PO (05:26)
[2022-08-05 07:31] LABS: Anion Gap 8 (5-15); BUN 45 mg/dL (7-18); BUN/Creat Ratio 19.1 RATIO (10-20); Calcium,Total 8.7 mg/dL (8.5-10.1); Chloride 90 mmol/L (98-107); Creatinine, Serum 2.36 mg/dL (0.70-1.30); EST Glomerular Filtration Rate 31 mL/min (>60); Est Glom Filt Rate - Afr Amer 37 mL/min (>60); Glucose 137 mg/dL (74-106); Potassium 3.8 mmol/L (3.5-5.1); Sodium Level 129 mmol/L (136-145)
[2022-08-05 07:53] VITALS: BP 104/75; PULSE 87; RESP 16; TEMP 36.4; O2SAT 95
[2022-08-05 08:01] VITALS: PULSE 90
--- NOTE | 2022-08-05 08:22 | DCINST_ITS ---
Discharge Instructions Diet Discharge Diet: No restrictions (However recommend a liquid to soft diet initially postoperatively) Activity Discharge Activity: May Not Drive (While still difficult to turn head from side to side (impairing blindspot checking) OR if taking narcotic pain medications) May shower in (days): 2 Ice area for (Minutes): 20 Additional Activity Instructions:: Be sure to elevate head of bed for first week postop Dressing / Incision Call your doctor if your incision/area has: Continuous Slow Oozing, Sudden Increased Bleeding, Increased Pain/ Swelling, Increased Redness and Swelling at the incision site Call your doctor if you observe: Numbness or Tingling Remove Dressing in: 2 days (Remove outer dressing but leave steri strips in place until they fall off spontaneously) Cleanse incision/area with: Soap & Water Follow Up Care Please Follow Up With: Jesús Esteves MD When: In 1 weeks for postop check Test Results: Test results from this visit will be discussed in further detail at your follow- up appointment, if applicable. Discharge Plan Admission Admit Date/Time: 08/04/22 12:24 Primary Reason for Your Visit: Thyroid lobectomy Attending Provider: Jesús Esteves Primary Care Provider: Anny Ibarra Instructions Patient Instructions: Thyroidectomy Post Op, After Thyroid Surgery Additional Instructions / Restrictions: Plan to restart Eliquis 48 hours postop as long as there is no concern for progressive neck swelling Discharge Orders/Prescriptions Prescriptions: No Action Eliquis 5 mg tablet 5 mg PO BID atorvastatin 80 mg tablet 80 mg PO QHS hydralazine 10 mg tablet 10 mg PO DAILY torsemide 20 mg tablet 60 mg PO 0800 carvedilol 12.5 mg tablet 12.5 mg PO BID Rx Instructions: must administer with a meal/food magnesium oxide 400 mg (241.3 mg magnesium) tablet 400 mg PO DAILY isosorbide dinitrate 10 mg tablet 10 mg PO DAILY Rx Instructions: allow nitrate-free interval of 12-14 hrs per 24-hr period amiodarone 200 mg tablet 200 mg PO DAILY potassium chloride 20 mEq packet 40 meq PO BID torsemide 20 mg tablet 40 mg PO 1999 Label Comments: TAKE 2 TABLETS BY MOUTH TWICE DAILY aspirin 81 mg Capsule 81 mg PO DAILY Referrals / Follow Up: Anny Ibarra DO [Primary Care Provider] - (Patient requires follow-up of creatinine after observation of TRISTIN postoperative day 1.) Disposition Disposition (needs filled in before D/C Order can be placed): Home, Self Care
--- NOTE | 2022-08-05 08:25 | PCM.DC.SUM ---
Providers Date of Admission: 08/04/22 Primary Care Physician: Dr. Anny Ibarra, DO Reason For Visit: LEFT THYROID LOBECTOMY WITH IONM Medications at Discharge Home Medications amiodarone 200 mg tablet 200 mg PO DAILY 06/09/21 apixaban 5 mg tablet (Eliquis) 5 mg PO BID 06/09/21 atorvastatin 80 mg tablet 80 mg PO QHS 06/09/21 carvedilol 12.5 mg tablet 12.5 mg PO BID 06/09/21 hydralazine 10 mg tablet 10 mg PO DAILY 06/09/21 isosorbide dinitrate 10 mg tablet 10 mg PO DAILY 06/09/21 magnesium oxide 400 mg (241.3 mg magnesium) tablet 400 mg PO DAILY 06/09/21 potassium chloride 20 mEq oral packet 40 meq PO BID 06/09/21 torsemide 20 mg tablet 60 mg PO 0806/09/21 torsemide 20 mg tablet 40 mg PO 2000 07/28/22 aspirin 81 mg capsule 81 mg PO DAILY 08/04/22 Hospital Course Operations - (Thyroid lobectomy 08/04/2022) Summary of Care Provided Minutes Spent on Discharge: 5 Hospital Course: Patient is a 51-year-old male who was admitted for observation status following an uncomplicated left thyroid lobectomy on 08/04/2022. Given his comorbidity index, I felt it best to keep him in a monitored setting following this procedure. He was thus brought to the floor and advanced to a clear liquid diet following the procedure. He tolerated this advancement without issue and was then advanced to an unrestricted, regular diet. Home medications were continued, but we also monitored him for any signs of hypocalcemia. Patient had neither paresthesias. In order to address his postoperative swelling, he was kept in a head up position and denied any significant discomfort at his operative site. The morning of postop day 1, laboratories were checked and patient exhibited electrolyte disturbances that have been seen previously?including hyponatremia and hypokalemia. However, he also showed some signs of acute kidney injury with a bump in creatinine despite continuing him on a low rate of fluid in addition to his regular diet postop. In the interest of not precipitating a situation of volume overload, I administered a small?500 cc bolus?of normal saline and then instructed him to follow-up with his primary care provider for further evaluation. It is also of note that patient had an elevated parathyroid hormone level today of greater than 230. This level had been obtained to be sure that it was not overly low on the account of her recent surgery, but my best interpretation at this time is that patient could have some element of secondary hyperparathyroidism on the account of his chronic renal dysfunction. We will have to continue to monitor. Given his general clinical stability and the ability to monitor his laboratory changes as an outpatient, hospital discharge was granted. Patient to follow-up with me in 1 week. Physical Exam Const alert, oriented x3 and no apparent distress Neck Neck Narrative: Operative dressing intact with no strikethrough. Mild bruising present along the right terminus of the incision. Neck remains soft and minimally tender to palpation. Weight / BMI Weight Weight: 262 lb 5.601 oz Body Mass Index (BMI) 36.6 ABG / Lab / Microbiology Data Result Diagrams: 08/02/22 11:32 08/05/22 06:50 Laboratory: Laboratory Results - last 24 hr 08/05/22 06:50: Sodium 129 L, Potassium 3.8, Chloride 90 L, Carbon Dioxide 31.0, Anion Gap 8, BUN 45 H, Creatinine 2.36 H, Estim Creat Clear Calc 39.00, Est GFR (MDRD) Af Amer 37 L, Est GFR (MDRD) Non-Af 31 L, BUN/Creatinine Ratio 19.1, Glucose 137 H, Calcium 8.7 D/C Instructions Discharge Diet: No restrictions (However recommend a liquid to soft diet initially postoperatively) May shower in (days): 2 Ice area for (Minutes): 20 Additional Activity Instructions: Be sure to elevate head of bed for first week postop Call your doctor if your incision/area has: Continuous Slow Oozing, Sudden Increased Bleeding, Increased Pain/ Swelling, Increased Redness and Swelling at the incision site Call your doctor if you observe: Numbness or Tingling Cleanse incision/area with: Soap & Water Please Follow Up With: Jesús Esteves MD When: In 1 weeks for postop check Meaningful Use Info Meaningful Use Diagnoses (Choose all that apply): None applicable Discharge Plan Admission Admit Date/Time: 08/04/22 12:24 Primary Reason for Your Visit: Thyroid lobectomy Attending Provider: Jesús Esteves Primary Care Provider: Anny Ibarra Instructions Patient Instructions: Thyroidectomy Post Op, After Thyroid Surgery Additional Instructions / Restrictions: Plan to restart Eliquis 48 hours postop as long as there is no concern for progressive neck swelling You may shower in 2 days The day of your follow-up in 1 week, please proceed to the lab prior to your appointment to obtain a calcium and parathyroid blood draw Discharge Orders/Prescriptions Prescriptions: Continued atorvastatin 80 mg tablet 80 mg PO QHS hydralazine 10 mg tablet 10 mg PO DAILY torsemide 20 mg tablet 60 mg PO 0800 carvedilol 12.5 mg tablet 12.5 mg PO BID Rx Instructions: must administer with a meal/food magnesium oxide 400 mg (241.3 mg magnesium) tablet 400 mg PO DAILY isosorbide dinitrate 10 mg tablet 10 mg PO DAILY Rx Instructions: allow nitrate-free interval of 12-14 hrs per 24-hr period amiodarone 200 mg tablet 200 mg PO DAILY potassium chloride 20 mEq packet 40 meq PO BID torsemide 20 mg tablet 40 mg PO 1999 Label Comments: TAKE 2 TABLETS BY MOUTH TWICE DAILY aspirin 81 mg Capsule 81 mg PO DAILY Held Eliquis 5 mg tablet 5 mg PO BID Hold Instructions: Resume on 08/07/22. Other Ambulatory Orders: PTHIN (Routine) Timeframe: 1 Week Facility: [facility] - Location: Laboratory Ordered By: Kylah WELLS Calcium,Total (Routine) Timeframe: 1 Week Facility: [facility] [place] - Location: Laboratory Ordered By: Kylah WELLS Referrals / Follow Up: Jesús Esteves MD [Med Staff - Active Staff] - (Please call our office to schedule a 1 week follow-up appointment) Anny Ibarra DO [Primary Care Provider] - (Patient requires follow-up of creatinine after observation of TRISTIN postoperative day 1.) Disposition Disposition (needs filled in before D/C Order can be placed): Home, Self Care
[2022-08-05] MEDS: Torsemide 20 MG Tablet 60 MG PO (08:39)
[2022-08-05] MEDS: 0.9% Normal Saline 1,000 ML 75 ML IV (08:40)
[2022-08-05] MEDS: Carvedilol 12.5 MG Tablet PO (08:44)
[2022-08-05] MEDS: Amiodarone 200 MG Tablet PO (08:44)
[2022-08-05] MEDS: Aspirin 81 MG TAB.CHEW PO (08:44)
[2022-08-05] MEDS: Potassium Chloride Oral Tablet 20 MEQ 40 MEQ PO (08:44)
[2022-08-05] MEDS: Magnesium Chloride 64 MG Delay Rel.Tablet 128 MG PO (08:44)
[2022-08-05 08:51] LABS: PTHIN 283.7 pg/mL (18.4-80.1)
[2022-08-05] MEDS: Isosorbide DN 10 MG Tablet PO (10:03)
== END 2022-08-05 11:41 | disposition home or self-care (01) ==
LOC: SDC 12:42 → MS3 12:42
PROVIDERS: Anesthesiology; Admitting Provider Surgery; PCP Internal Medicine; Referring Provider Surgery; Visit Provider Surgery
PROC: (CPT 60220; principal; 2022-08-04 07:15)
DX: E04.1 Nontoxic single thyroid nodule (principal); Z79.82 Long term (current) use of aspirin; E87.6 Hypokalemia; R13.10 Dysphagia, unspecified; Z95.810 Presence of automatic (implantable) cardiac defibrillator; F17.210 Nicotine dependence, cigarettes, uncomplicated; Z79.899 Other long term (current) drug therapy; Z79.01 Long term (current) use of anticoagulants; I25.2 Old myocardial infarction; K21.9 Gastro-esophageal reflux disease without esophagitis; Z86.718 Personal history of other venous thrombosis and embolism; E87.1 Hypo-osmolality and hyponatremia
CPT/HCPCS: 60220; 00320; 36415; 80048; 83970; 84132; 85027; 88307; 93005; 96360; 96361; 99221; J7030; J7040; J7120; G0378; J2405

== ENCOUNTER → 2022-08-11 | Outpatient (CLI) | payer MEDICARE, SELFPAY ==
[2022-08-11 13:40] LABS: Calcium,Total 9.4 mg/dL (8.5-10.1)
== END | disposition home or self-care (01) ==
LOC: PAVLAB 13:01
PROVIDERS: PCP Internal Medicine; Referring Provider Physician Assistant; Visit Provider Physician Assistant
DX: E04.1 Nontoxic single thyroid nodule (principal)
CPT/HCPCS: 36415; 82310; 83970

== ENCOUNTER → 2022-09-17 | Outpatient (CLI) | payer MEDICARE, SELFPAY ==
[2022-09-17 10:58] LABS: Free T3 2.9 pg/mL (2.18-3.98); T4 Total, Thyroxin 10.6 ug/dL (4.5-12.1)
== END | disposition home or self-care (01) ==
PROVIDERS: PCP Internal Medicine; Referring Provider Surgery; Visit Provider Surgery
DX: E04.1 Nontoxic single thyroid nodule (principal); I48.91 Unspecified atrial fibrillation
CPT/HCPCS: 36415; 84436; 84443; 84481

== ENCOUNTER 2022-11-05 11:16 | Emergency (ER) | payer MEDICARE, SELFPAY ==
[2022-11-05] VITALS (7 sets, daily range): BP systolic 93–196; BP diastolic 76–169; PULSE 89–103; RESP 16–21; TEMP 36; O2SAT 95–100; BMI 36.4
--- NOTE | 2022-11-05 11:56 | EDS_ITS ---
HPI History of Present Illness Chief Complaint: Chest Pain Informant: patient Onset/Context/Timing Onset: Today Activity at onset: gradual Timing: Continuous Quality: Positive for Aching and Heaviness Location: Substernal and Left Parasternal Worsened By: Nothing Relieved By: Nothing Associated Symptoms: Positive for Nausea, Cough, Lightheadedness and Palpitations; Negative for Vomiting, Diaphoresis, Dyspnea, Fever or Acid Reflux Narrative Narrative: Patient presents with chest pain that began today. Patient states it came on gradually. Patient states it has been constant all morning. Patient describes it as sharp and heaviness. Patient states it is over the substernal and left parasternal areas. Patient states the pain is similar to pain he had with prior NM. Patient admits to some nausea but denies any vomiting. Patient admits to some intermittent lightheadedness. Patient states that sometimes he feels his atrial fibrillation. Patient admits to a cough but denies any sputum production. Patient denies any fevers or chills. Patient denies any shortness of breath. CVD Risk Factors: Negative for Hypertension, Diabetes, Hypercholesterolemia, Family History 1' </=55 or Smoking PE Risk Factors: Positive for Prior DVT or PE; Negative for Recent Travel/Surgery, Recent Immobilization, Cancer or OCP + Smoking + >/=35 PFSH PFSH Medical History Alcohol use Anxiety Anxiety Atrial fibrillation Cardiology follow-up encounter Chest pain Constipation COPD (chronic obstructive pulmonary disease) CPAP (continuous positive airway pressure) dependence Dietary restriction DVT (deep venous thrombosis) Former smoker Gastric reflux Heart disease History of atrial fibrillation History of blood clots History of CHF (congestive heart failure) History of diverticulitis History of edema History of NM (myocardial infarction) History of renal disease History of stress test Hypertension Kidney failure Marijuana use Pacemaker Pulmonary embolism Shortness of breath on exertion Thyroid disease Wears glasses Home Medications amiodarone 200 mg tablet 200 mg PO DAILY 06/09/21 [History Last Taken 08/04/22] apixaban 5 mg tablet (Eliquis) 5 mg PO BID 06/09/21 [History Last Taken 08/02/22] atorvastatin 80 mg tablet 80 mg PO QHS 06/09/21 [History Last Taken 06/24/21] carvedilol 12.5 mg tablet 12.5 mg PO BID 06/09/21 [History Last Taken 08/04/22] hydralazine 10 mg tablet 10 mg PO DAILY 06/09/21 [History Last Taken 08/04/22] isosorbide dinitrate 10 mg tablet 10 mg PO DAILY 06/09/21 [History Last Taken 08/04/22] magnesium oxide 400 mg (241.3 mg magnesium) tablet 400 mg PO DAILY 06/09/21 [History Last Taken 06/24/21] potassium chloride 20 mEq oral packet 40 meq PO BID 06/09/21 [History Last Taken 08/04/22] torsemide 20 [place] [address]06/09/21 [History Last Taken 08/04/22] torsemide 20 mg tablet 40 mg PO 199907/28/22 [History Last Taken Unknown] aspirin 81 mg capsule 81 mg PO DAILY 08/04/22 [History Last Taken 08/03/22] Allergy/AdvReac Type Severity Reaction Status Date / Time No Known Allergies Allergy Verified 09/17/22 13:17 Family History Mother Hypertension Thyroid disorder Father Hypertension Brother Seizures Surgical History History of cardiac catheterization History of heart artery stent History of implantable cardiac defibrillator (ICD) Hx of colonoscopy Social History Smoking Status: Former smoker how long ago did patient quit smoking: pt currently trying to quit, smokes occasionally, not every day substance use type: marijuana ROS ROS ED Constitutional Constitutional ED: Denies chills or fever(s) Eyes Eyes: Denies blurry vision or change in vision ENT ENT ED: Denies rhinorrhea or sore throat Cardiovascular Cardiovascular: Reports chest pain and palpitations Respiratory/Chest Respiratory/Chest: Reports cough; Denies dyspnea Gastrointestinal Gastrointestinal: Reports nausea; Denies abdominal pain or vomiting Genitourinary Genitourinary ED: Denies dysuria or hematuria Musculoskeletal Musculoskeletal: Denies back pain or neck pain Integumentary Reports rash; Denies abscess Neurologic Neurologic: Denies headache(s) or weakness Allergic/Immunologic Allergic/Immunologic ED: Denies mouth swelling or urticaria EXAM Physical Exam Const Vital Signs: 11/05/22 11:17 11/05/22 12:13 11/05/22 12:20 Temperature 96.8 F L Temperature Source Temporal Pulse Rate 97 103 H Respiratory Rate 18 21 H Blood Pressure 196/169 H 124/79 H Blood Pressure Mean 178 94 Pulse Ox 100 95 95 Oxygen Delivery Method Room Air Room Air Room Air 11/05/22 13:06 11/05/22 14:08 11/05/22 15:01 Temperature Temperature Source Pulse Rate 94 92 94 Respiratory Rate 18 16 16 Blood Pressure 93/81 H 115/76 105/79 Blood Pressure Mean 85 89 87 Pulse Ox 95 97 95 Oxygen Delivery Method Room Air Room Air 11/05/22 15:30 Temperature Temperature Source Pulse Rate 89 Respiratory Rate 16 Blood Pressure 115/96 H Blood Pressure Mean Pulse Ox 95 Oxygen Delivery Method Positive well nourished, well developed and obese General Appearance ED: well developed and NAD Nutritional Appearance: obese HEENT normocephalic and atraumatic Eyes PERRL and EOMs intact bilaterally Neck supple and no JVD Chest Wall palpation of chest normal Resp normal respiratory effort and clear to auscultation bilaterally Effort and Inspection: Negative for respiratory distress Cardio regular rate Rhythm: abnormal rhythm irregularly irregular GI normal to inspection, nondistended, normoactive bowel sounds, soft to palpation, non-tender and non-distended Extremity normal to inspection Extremity Narrative: There are 3 puncture wounds over the medial aspect of the right proximal lower leg and knee area. There is some surrounding erythema. There is tenderness to palpation over this area. There is no induration. There is no fluctuance. There is no discharge or drainage. There is full range of motion of the right knee. There is no calf tenderness or edema. General Extremety ED: Negative for edema General Extremity: Negative for edema Neuro oriented x3, CN's II-XII intact bilaterally and no sensory deficits noted Sensorium / Orientation: awake and alert Motor Exam: strength 5/5 throughout Psych mental status grossly normal Heart Score History: Slightly/Non-Suspicious ECG: Nonspecific Repolarization Age: >45 - <65 years Risk Factors: >/= 3 Risk Factors or History of CAD Score: 4 MDM MDM MDM Narrative Medical decision making narrative: Differential diagnosis includes cardiac dysrhythmia, cardiac ischemia, pneumonia, pneumothorax, pulmonary embolism, musculoskeletal pain, and anxiety. EKG will be obtained to assess for cardiac dysrhythmia and cardiac ischemia. Chest x-ray will be obtained to assess for pneumonia and pneumothorax. CBC will be obtained to assess for leukocytosis and anemia. Basic metabolic profile will be obtained to assess for electrolyte abnormality and renal function. High- sensitivity troponin will be obtained to assess for cardiac ischemia. 2-hour repeat high-sensitivity troponin will be obtained to assess for ongoing cardiac ischemia. D-dimer will be obtained to assess for pulmonary embolism. Lab Data Attestation: I reviewed the patient's lab results. Lab results narrative: CBC was reviewed and was within normal limits. PT with INR and PTT were reviewed. Pro time was slightly elevated at 17.0. INR is 1.4. PTT was slightly elevated at 38.8. Basic metabolic profile was reviewed. Sodium was slightly low at 132. Potassium was 2.5. Chloride was 87. CO2 was slightly elevated at 36. BUN was 37 and creatinine was 2.23. These are consistent with prior results. D-dimer was reviewed and was slightly elevated at 0.55. High- sensitivity troponin was reviewed and was normal at 64. 2-hour repeat high-sensitivity troponin was reviewed and was normal at 60. Labs: Laboratory Results - last 24 hr 11/05/22 11/05/22 11/05/22 11:30 13:55 14:30 WBC 8.9 RBC 5.10 Hgb 15.1 Hct 45.6 MCV 89.4 MCH 29.6 MCHC 33.1 RDW Std Deviation 68.5 H RDW Coeff of Jeremy 21.3 H Plt Count 247 MPV 10.7 Immature Gran % (Auto) 0.300 Neut % (Auto) 74.4 H Lymph % (Auto) 11.8 L [place] % (Auto) 12.2 H Eos % (Auto) 1.0 Baso % (Auto) 0.3 Absolute Neuts (auto) 6.6 Absolute Lymphs (auto) 1.05 Nucleated RBC % 0 Platelet Estimate ADEQUATE Anisocytosis 1+ PT 17.0 H INR 1.4 APTT 38.8 H D-Dimer Quant (PE/DVT) 0.55 H* Sodium 132 L Potassium 2.5 L* Chloride 87 L Carbon Dioxide 36.0 H Anion Gap 9 BUN 37 H Creatinine 2.23 H Estim Creat Clear Calc 40.80 Est GFR (MDRD) Af Amer 40 L Est GFR (MDRD) Non-Af 33 L BUN/Creatinine Ratio 16.6 Glucose 114 H Calcium 9.5 Magnesium 2.0 Troponin I High Sens 64 60 Radiography Chest X-Ray - ED: 1 View, Read by ED Physician, Read by Radiologist and No Acute Disease CTA PE Study: No Evidence of PE and No Evidence of Dissection Diagnostic Testing: Clinical Impression(s) from Imaging Studies Chest X-Ray 11/05/22 12:15 IMPRESSION: No acute pulmonary process Electronically Signed: Jose Cruz Martin MD at 12:33 EDT , Chest CTA 11/05/22 12:59 IMPRESSION: No evidence of pulmonary embolism. Electronically Signed: Timmy Bocanegra MD at 14:11 EDT , Portable 1 view chest x-ray was obtained. On my independent interpretation, lung voss are clear. There is borderline cardiomegaly. Bony thorax is normal. There is no acute process noted. Radiologist also interpreted the x- ray and agrees. Because of the elevated D-dimer, CTA of the chest was obtained there is no evidence of pulmonary embolism or aortic dissection. This was interpreted by the radiologist and was also independently reviewed by myself. EKG Initial EKG: Attestation: I personally reviewed and interpreted this EKG as follows: Interpretation: Atrial Fibrillation (101) and Non-Specific ST Changes Comments: EKG was obtained. On my independent interpretation, shows atrial fibrillation with a rate of 101. QRS interval was slightly prolonged at 136 ms. QTc interval was slightly prolonged at 554 ms. There is left axis deviation at -41. There is nonspecific intraventricular conduction delay. There are nonspecific ST-T wave changes. This was unchanged compared to previous EKG. Prior EKG tracings: available for review Prior: Unchanged (08/04/2022) Additional Tests and Interventions Additional Tests or Interventions: Because of the hypokalemia, serum magnesium level was ordered and was normal at 2.0. Treatment and Re-Evaluation :: Patient was given aspirin. Patient was given IV fluids. Patient is feeling better on reevaluation. Patient was advised of his findings. Patient was given a dose of oral and IV potassium here. Patient states he did have a stress test earlier this year which was normal. Patient states he has had recent increase in his torsemide. Patient states that there was some confusion regarding his potassium prescription. Patient states that a potassium prescription was sent into his pharmacy but the pharmacy did not have enough potassium pills to fill his prescription. Patient states he has not had his potassium in a couple days. Patient will check with his pharmacy to see if he needs a new prescription for potassium or if they will be able to fill his prescription either partially or completely. Patient has a HEART score of 4. However, since the patient has had 2 normal troponin tests and had a normal stress test earlier this year, I feel the patient is safe to be discharged home. Patient was instructed to follow-up with his primary care physician in 5 to 7 days. Patient was instructed return if worse in any way. Patient understood and was agreeable with the plan. All questions were answered. Discharge Plan Triage Chief Complaint: Chest Pain ED Provider: Christiano Bansal Dx/Rx/DC Orders Clinical Impression: Atrial fibrillation, Chest pain, Hypokalemia Instructions: ED Chest Pain, Uncertain Cause Prescriptions: No Action Eliquis 5 mg tablet 5 mg PO BID Hold Instructions: Resume on 08/07/22. atorvastatin 80 mg tablet 80 mg PO QHS hydralazine 10 mg tablet 10 mg PO DAILY torsemide 20 mg tablet 60 mg PO 0800 carvedilol 12.5 mg tablet 12.5 mg PO BID Rx Instructions: must administer with a meal/food magnesium oxide 400 mg (241.3 mg magnesium) tablet 400 mg PO DAILY isosorbide dinitrate 10 mg tablet 10 mg PO DAILY Rx Instructions: allow nitrate-free interval of 12-14 hrs per 24-hr period amiodarone 200 mg tablet 200 mg PO DAILY potassium chloride 20 mEq packet 40 meq PO BID torsemide 20 mg tablet 40 mg PO 1999 Patient Comments: TAKE 2 TABLETS BY MOUTH TWICE DAILY aspirin 81 mg Capsule 81 mg PO DAILY Primary Care Provider: Anny Ibarra Referrals: Anny Ibarra DO [Primary Care Provider] - 5-7 Days Disposition Disposition: Home, Self Care Discharge Date/Time: 11/05/22 15:34
--- NOTE | 2022-11-05 12:06 | EKG12_ITS ---
Test Reason : SOB Blood Pressure : / mmHG Vent. Rate : 101 BPM Atrial Rate : 000 BPM P-R Int : 000 ms QRS Dur : 136 ms QT Int : 428 ms P-R-T Axes : 000 -41 095 degrees QTc Int : 554 ms Atrial fibrillation with rapid ventricular response Left axis deviation Non-specific intra-ventricular conduction block Minimal voltage criteria for LVH, may be normal variant ( [place] product ) Nonspecific T wave abnormality Abnormal ECG Confirmed by CAMERON WELLINGTON, TAVO ([id number]), editor department ROSETTA ONEILL ([id number]) on 11/08/2022 1:16:33 PM Referred By: Confirmed By:BESSY BARNES MD
--- NOTE | 2022-11-05 12:15 | RAD_ITS ---
STUDY: X-RAY CHEST REASON FOR EXAM: Male, 52 years old. Atypical chest pain TECHNIQUE: Single AP portable view of the chest. COMPARISON: None. FINDINGS: EKG leads overlie the chest. Satisfactory appearance of a left subclavian pacemaker The lungs are clear and expanded. There is no demonstrated pleural abnormality. Normal size heart. Normal mediastinum and baldev. Normal visualized pulmonary arteries. Normal visualized aortic arch and descending thoracic aorta. Normal visualized thoracic spine. Normal visualized ribs, clavicles, and shoulders. There is no demonstrated abnormality of the visualized soft tissue structures of the upper abdomen. RAD/Chest 1 View (Portable) IMPRESSION: No acute pulmonary process Electronically Signed: Jose Cruz Martin MD at 12:33 EDT ,
[2022-11-05] MEDS: Aspirin 81 MG TAB.CHEW 324 MG PO (12:23)
[2022-11-05 12:26] LABS: Absolute Lymphocyte Count 1.05 X10^3/uL (0.83-4.51); Absolute Neutrophil Count 6.6 X10^3/uL (2.0-7.7); Basophil# 0.03 X10^3/uL; Basophil% 0.3 % (0-1); Eosinophil# 0.09 X10^3/uL; Hematocrit 45.6 % (40-54); Hemoglobin 15.1 g/dL (13.0-16.5); Lymphocyte # 1.05 X10^3/ul (0.83-4.51); Lymphocyte % 11.8 % (19-41); Mean Corp Hgb Conc 33.1 g/dL (32-36); Mean Corpuscular Hgb 29.6 pg (27.0-32.0); Mean Corpuscular Volume 89.4 fL (80-94); Mean Platelet Vol. 10.7 fl (6.2-12.0); Monocyte# 1.08 X10^3/uL; Monocyte% 12.2 % (0-10); NRBC Flagged by Analyzer 0 % (0-5); Neutrophil % 74.4 % (47-70); POSITIVE MORPHOLOGY YES; Platelet Count 247 K/mm3 (150-450); RBC Distribution Width CV 21.3 % (11.6-14.6); RBC Distribution Width SD 68.5 fl (35.1-43.9); White Blood Count 8.9 K/mm3 (4.4-11.0)
[2022-11-05 12:32] LABS: Differential Indicated SCAN CRITERIA MET
[2022-11-05 12:44] LABS: International Normalized Ratio 1.4
[2022-11-05 12:45] LABS: Partial Thromboplast Time 38.8 Seconds (24.1-36.2)
[2022-11-05 12:50] LABS: Anion Gap 9 (5-15); BUN 37 mg/dL (7-18); BUN/Creat Ratio 16.6 RATIO (10-20); Calcium,Total 9.5 mg/dL (8.5-10.1); Chloride 87 mmol/L (98-107); Creatinine, Serum 2.23 mg/dL (0.70-1.30); D-Dimer Quantitative (DVT/PE) 0.55 FEU/ug/m (0.27-0.49); EST Glomerular Filtration Rate 33 mL/min (>60); Est Glom Filt Rate - Afr Amer 40 mL/min (>60); Glucose 114 mg/dL (74-106); Potassium 2.5 mmol/L (3.5-5.1); Sodium Level 132 mmol/L (136-145); Troponin-I HS (w/2H Reflex) 64 pg/mL (3.0-78.0)
--- NOTE | 2022-11-05 12:59 | CT_ITS ---
STUDY: CTA CHEST REASON FOR EXAM: Male, 52 years old. Elevated D-dimer. Chest pain. Congestive heart failure. RADIATION DOSAGE (If Supplied By Facility): CTDIvol = ( 8.99 ) mGy, DLP = ( 496.39 ) mGycm TECHNIQUE: The examination was performed with the intravenous administration of IV 100mL Isovue-370. Post-processing of the angiographic images was performed, with multiplanar reformation and 3D reconstruction. Individualized dose optimization techniques were used for this CT. COMPARISON: Comparison is made with prior chest radiograph done earlier today. FINDINGS: Normal enhancement of the main pulmonary artery and right and left pulmonary arteries. Normal enhancement of the bilateral peripheral pulmonary arteries. There is no demonstrated pulmonary embolism. Normal thoracic aorta and visualized great vessels. There is no demonstrated aortic dissection. There are calcifications of the coronary arteries. A left-sided dual-chamber pacemaker is seen. Cardiomegaly. There are visualized mediastinal lymph nodes, which are within normal size limits, and with normal morphology. Normal hilar regions. Normal visualized trachea and bronchi. The lungs are well expanded. Normal pulmonary parenchyma. Normal pleura. Normal chest wall structures. There are degenerative changes of thoracic spine. Normal visualized upper abdomen. CT/CTA Chest W/WO Contrast IMPRESSION: No evidence of pulmonary embolism. Electronically Signed: Timmy Bocanegra MD at 14:11 EDT ,
[2022-11-05 13:31] LABS: Anisocytosis 1+; Platelet Estimate ADEQUATE (ADEQ)
[2022-11-05] MEDS: Potassium Chloride Oral Tablet 20 MEQ 40 MEQ PO (13:59)
[2022-11-05] MEDS: 0.9% Normal Saline 1,000 ML 1000 ML IV (14:00)
[2022-11-05] MEDS: Potassium Chloride 10mEq/100mL 10 MEQ/100 ML IV.SOLN. 100 MEQ IV BOLUS (14:02)
[2022-11-05 14:18] LABS: Reflex Troponin-HS? (from REC) Y
[2022-11-05 14:58] LABS: Troponin-I HS 60 pg/mL (3.0-78.0)
== END 2022-11-05 15:34 | disposition home or self-care (01) ==
PROVIDERS: Emergency Provider Emergency Medicine; PCP Internal Medicine; Visit Provider Emergency Medicine
DX: I48.91 Unspecified atrial fibrillation (principal); J44.9 Chronic obstructive pulmonary disease, unspecified; I11.0 Hypertensive heart disease with heart failure; I50.9 Heart failure, unspecified; E87.6 Hypokalemia; F17.200 Nicotine dependence, unspecified, uncomplicated; E66.9 Obesity, unspecified
CPT/HCPCS: 71045; 71275; 80048; 83735; 84484; 85025; 85379; 85610; 85730; 93005; 96365; 99285; J7030; Q9967; A4216